=== PATIENT | female | born 1995 | race Caucasian/White ===

== ENCOUNTER 2019-06-08 00:02 | Emergency (ER) | payer MEDICAID ==
[~2019-06-08] VITALS: Ht 175.3 cm; Wt 54.0 kg
[2019-06-08 01:10] LABS: Urine Bacteria MOD /hpf (None Seen); Urine Blood 2+ /uL (Negative); Urine Mucus MODERATE (None Seen); Urine Specific Gravity 1.022 (1.001-1.035); Urine WBC 1805 /hpf (0 - 5)
[2019-06-08] MEDS ORDERED: cefTRIAXone SOD 1,000 MG VL IM ONE (01:30)
[2019-06-08 01:44] VITALS: BP 110/70
== END 2019-06-08 01:53 | disposition home or self-care (01) ==
LOC: ER 00:07
DX: N30.00 Acute cystitis without hematuria (principal)
CPT/HCPCS: 81001; 96372; 99283; J0696

== ENCOUNTER 2019-06-10 11:09 | Emergency (ER) | payer MEDICAID ==
[~2019-06-10] VITALS: Ht 175.3 cm; Wt 53.5 kg
[2019-06-10 11:15] VITALS: BP 118/73
== END 2019-06-10 13:44 | disposition home or self-care (01) ==
LOC: ER 11:13
DX: N39.0 Urinary tract infection, site not specified (principal)
CPT/HCPCS: 81002; 81025

== ENCOUNTER 2019-12-01 19:58 | Emergency (ER) | payer MEDICAID ==
[~2019-12-01] VITALS: Ht 175.3 cm; Wt 54.9 kg
[2019-12-01 20:57] LABS: Urine Bacteria FEW /hpf (None Seen); Urine Blood Negative /uL (Negative); Urine WBC 6 /hpf (0 - 5)
[2019-12-01] MEDS ORDERED: cefTRIAXone SOD 1,000 MG VL IM ONE (22:45)
[2019-12-01 23:59] VITALS: BP 139/67
== END 2019-12-02 00:08 | disposition home or self-care (01) ==
LOC: ER 19:59
DX: N39.0 Urinary tract infection, site not specified (principal)
CPT/HCPCS: 81001; 81025; 96372; 99283; J0696

== ENCOUNTER 2020-02-08 18:50 | Emergency (ER) | payer MEDICAID ==
[~2020-02-08] VITALS: Ht 175.3 cm; Wt 59.0 kg
[2020-02-08] MEDS ORDERED: KETOROLAC TROMETH 60MG/2ML VIAL IM ONE (21:00)
[2020-02-08] MEDS ORDERED: PANTOPRAZOLE 40 MG TAB PO ONE (21:00)
[2020-02-08] MEDS ORDERED: OMEPRAZOLE 20MG/10ML ORAL SUSP GT ONE (21:45)
[2020-02-08] MEDS ORDERED: SODIUM CHLORIDE 0.9% 1,000 ML IV ONE (23:30)
[2020-02-09 00:51] LABS: Basophils # (auto) 0.1 10 ^3/uL (0-0.2); Basophils % (auto) 0.6 % (0.0-2.0); Eosinophils # (auto) 0.2 10 ^3/uL (0-0.8); Eosinophils % (auto) 1.8 % (0.0-7.0); Hematocrit 41.8 % (36.0-46.0); Hemoglobin 13.9 g/dL (12.2-16.2); Lymphocytes # (auto) 1.3 10 ^3/uL (0.4-5.4); Lymphocytes % (auto) 13.4 % (10.0-50.0); Mean Corpuscular Hemoglobin 27.9 pg (28.0-32.0); Mean Corpuscular Hgb Conc. 33.2 g/dL (32.0-36.0); Mean Corpuscular Volume 84.2 fL (80.0-100.0); Monocytes # (auto) 0.6 10 ^3/uL (0-1.3); Monocytes % (auto) 6.6 % (0.0-12.0); Neutrophils # (auto) 7.4 10 ^3/uL (1.6-8.6); Neutrophils % (auto) 77.6 % (37.0-80.0); Nucleated Red Blood Cells % 0.2 %; Platelet Count (auto) 174 10^3/uL (140-450); Red Blood Cells 4.96 10^6/uL (4.0-5.20); Red Cell Distribution Width 12.7 % (11.8-14.3); White Blood Cell 9.6 10^3/uL (4.4-10.8)
[2020-02-09 01:09] LABS: Albumin 3.9 g/dL (3.4-5.0); Calcium 8.6 mg/dL (8.5-10.1); Potassium 3.8 mmol/L (3.5-5.1)
[2020-02-09 01:12] LABS: Bilirubin, Total 0.5 mg/dL (0.2-1.0); Total Protein 7.5 g/dL (6.4-8.2)
[2020-02-09] MEDS ORDERED: GLUCAGON HYDROCHLORIDE (RDNA) 1 MG VIAL IV ONE ×3 (03:00→04:00)
[2020-02-09] MEDS ORDERED: LORazepam 2MG/ML-1ML VIAL IV ONE (05:00)
[2020-02-09] MEDS ORDERED: PANTOPRAZOLE 40 MG/10 ML VIAL INJ IV ONE (05:00)
[2020-02-09] MEDS ORDERED: diphenhdrAMINE HCL 50 MG/1 ML VL ONE (12:52)
[2020-02-09 13:15] LABS: INR 1.12 (0.9-1.15)
[2020-02-09] MEDS ORDERED: NALOXONE HCL 0.4 MG/ML VIAL ONE (13:40)
[2020-02-09] MEDS ORDERED: FLUMAZENIL 0.1 MG/ML INJ 10ML MDV IV ONE (13:40)
[2020-02-09] MEDS: MIDAZOLAM HCL 5 MG/ML-1ML VIAL ONE ×2 (13:58→14:01)
[2020-02-09] MEDS: fentaNYL CITRATE 100 MCG/2 ML VL ONE ×2 (13:58→14:01)
[2020-02-09 15:55] VITALS: BP 85/42
[2020-02-09] MEDS ORDERED: NYS5LQ MT (17:01)
[2020-02-09] MEDS ORDERED: PANT40TA2 PO (17:01)
== END 2020-02-09 17:48 | disposition home or self-care (01) ==
LOC: ER 18:50
DX: S10.15XA Superficial foreign body of throat, initial encounter (principal); X58.XXXA Exposure to other specified factors, initial encounter; Y93.9 Activity, unspecified; Y92.89 Other specified places as the place of occurrence of the external cause; Y99.8 Other external cause status
CPT/HCPCS: 36415; 43235; 70360; 70490; 71046; 71250; 80053; 84702; 85025; 85610; 96361; 96372; 96374; 96375; 96376; 99285; C9113; J1200; J1610; J1885; J2060; J2250; J2310; J3010; J7030

== ENCOUNTER 2020-10-25 22:05 | Emergency (ER) | payer MEDICAID ==
[~2020-10-25] VITALS: Ht 175.3 cm; Wt 57.2 kg
[~2020-10-25 22:05] MED LIST: NYS5LQ MT; PANT40TA2 PO
[2020-10-25 22:59] LABS: Urine Bacteria NONE SEEN /hpf (None Seen); Urine Blood 2+ /uL (Negative); Urine Specific Gravity 1.012 (1.001-1.035); Urine WBC 88 /hpf (0 - 5)
[2020-10-26] MEDS ORDERED: CIPROFLOXACIN HCL 500 MG TAB PO ONE (02:45)
[2020-10-26 03:24] VITALS: BP 107/74
== END 2020-10-26 03:40 | disposition home or self-care (01) ==
LOC: ER 22:05
DX: N39.0 Urinary tract infection, site not specified (principal)
CPT/HCPCS: 81001